=== PATIENT | male | born 2005 | race Caucasian/White ===

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

== ENCOUNTER 2025-03-07 15:56 | Emergency (ER) | payer SELFPAY ==
[2025-03-07 16:05] VITALS: BP 121/74; PULSE 85; RESP 14; TEMP 36.6; O2SAT 98
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
== END 2025-03-07 16:39 | disposition home or self-care (01) ==
LOC: ER 16:36
PROVIDERS: Emergency Provider Student in an Organized Health Care Education/Training Program
DX: L73.8 Other specified follicular disorders (principal)
CPT/HCPCS: 99283 ×2